=== PATIENT | male | born 1995 | race Two or more races ===

== ENCOUNTER 2021-12-14 00:53 | Emergency (ER) | payer SELFPAY ==
[~2021-12-14] VITALS: Ht 170.2 cm; Wt 74.8 kg
--- NOTE | 2021-12-14 01:12 | NUR ---
Patient walked into ER with steady gait c/o right arm pain
--- NOTE | 2021-12-14 01:15 | NUR ---
Dr Otto in room for MARISOL
[2021-12-14] MEDS ORDERED: OXYC-128 PO (01:59)
--- NOTE | 2021-12-14 02:09 | NUR ---
Patient discharged to home in stable condition. Written and verbal after care instructions given. Patient verbalizes understanding of instructions. Stressed follow up or return to ER for worsening s/s. Patient is able to walk with steady gait, no distress noted
[2021-12-14 02:10] VITALS: BP 124/76
== END 2021-12-14 02:10 | disposition home or self-care (01) ==
LOC: ER 01:14
DX: S52.121A Displaced fracture of head of right radius, initial encounter for closed fracture (principal); V86.49XA Person injured while boarding or alighting from other special all-terrain or other off-road motor vehicle, initial encounter; Y92.89 Other specified places as the place of occurrence of the external cause
CPT/HCPCS: 73080; A4663